=== PATIENT | female | born 1945 | race Caucasian/White ===

== ENCOUNTER → 2016-08-09 | Outpatient (CLI) | payer MEDICARE, BC ==
[~2016-08-09] MED LIST: ASPRIN; CALCIUM CITRAT200 MG PO; FEMARA2.5 MG PO; MULTIPLE VITAMI1 CAP PO; NIACIN100 M1 PO
[2016-08-09 07:27] LABS: HEMATOCRIT 37.9 % (37.0-47.0); HEMOGLOBIN 12.8 g/dl (12.5-16.0); MEAN CELL VOLUME 96 fl (80.0-100.0); MEAN CORPUSCULAR HEMOGLOBIN 32 pg (27.0-31.0); MEAN CORPUSCULAR HGB CONC 34 g/dl (33.0-37.0); MEAN PLATELET VOLUME 11.2 fl (7.4-10.4); PLATELET COUNT 198 K/mm3 (130-400); RED BLOOD COUNT 3.97 M/mm3 (4.10-5.30); REDCELL DISTRIBUTION WIDTH-CV 13.1 % (11.5-14.5); WHITE BLOOD COUNT 4.5 K/mm3 (4.8-10.8)
[2016-08-09 07:43] LABS: ADJUSTED CALCIUM 9.2 mg/dL (8.4-10.2); ALBUMIN 4.6 gm/dL (3.5-5.0); BILIRUBIN,TOTAL 0.8 mg/dL (0.0-1.0); CALCIUM 9.7 mg/dL (8.4-10.2); CREATININE, serum 0.66 mg/dL (0.52-1.25); POTASSIUM 4.4 mmol/L (3.4-5.0); TOTAL PROTEIN 8.1 gm/dL (6.4-8.2)
[2016-08-09 08:07] LABS: THYROID STIMULATING HORMONE 3.86 uIU/mL (0.465-4.680)
== END ==
LOC: COL.LAB 06:52
PROVIDERS: Internal Medicine
DX: I10 Essential (primary) hypertension (principal); E78.4 Other hyperlipidemia; E55.9 Vitamin D deficiency, unspecified; Z51.11 Encounter for antineoplastic chemotherapy

== ENCOUNTER → 2016-09-14 | Outpatient (CLI) | payer MEDICARE, BC | LOC: MC.RAD 07:40 | DX: Z12.31 Encounter for screening mammogram for malignant neoplasm of breast (principal); D24.2 Benign neoplasm of left breast; Z85.3 Personal history of malignant neoplasm of breast ==

== ENCOUNTER → 2017-04-25 | Outpatient (CLI) | payer MEDICARE, BC ==
[2017-04-25 09:25] LABS: CALCIUM 9.4 mg/dL (8.4-10.2); CREATININE, serum 0.7 mg/dL (0.52-1.25); POTASSIUM 4.2 mmol/L (3.4-5.0)
== END ==
LOC: COL.LAB 08:07
PROVIDERS: Internal Medicine
DX: E87.1 Hypo-osmolality and hyponatremia (principal)

== ENCOUNTER → 2017-09-09 | Outpatient (CLI) | payer MEDICARE, BC ==
[2017-09-09 08:03] LABS: HEMATOCRIT 37.9 % (37.0-47.0); HEMOGLOBIN 13.1 g/dl (12.5-16.0); MEAN CELL VOLUME 96 fl (80.0-100.0); MEAN CORPUSCULAR HEMOGLOBIN 33 pg (27.0-31.0); MEAN CORPUSCULAR HGB CONC 35 g/dl (33.0-37.0); MEAN PLATELET VOLUME 9.5 fl (7.4-10.4); PLATELET COUNT 277 K/mm3 (130-400); RED BLOOD COUNT 3.97 M/mm3 (4.10-5.30); REDCELL DISTRIBUTION WIDTH-CV 12.6 % (11.5-14.5)
[2017-09-09 08:17] LABS: ALBUMIN 4.3 gm/dL (3.5-5.0); BILIRUBIN,TOTAL 0.6 mg/dL (0.0-1.0); CALCIUM 9.2 mg/dL (8.4-10.2); CHOLESTEROL RISK RATIO 2.4; CREATININE, serum 0.63 mg/dL (0.52-1.25); POTASSIUM 4.2 mmol/L (3.4-5.0); TOTAL PROTEIN 8.3 gm/dL (6.4-8.2)
[2017-09-09 08:46] LABS: THYROID STIMULATING HORMONE 2.68 uIU/mL (0.465-4.680)
== END ==
LOC: COL.LAB 07:30
PROVIDERS: Internal Medicine
DX: E78.2 Mixed hyperlipidemia (principal); I10 Essential (primary) hypertension

== ENCOUNTER → 2017-10-06 | Outpatient (CLI) | payer MEDICARE, BC | LOC: MC.RAD 07:53 | DX: Z12.31 Encounter for screening mammogram for malignant neoplasm of breast (principal); N64.89 Other specified disorders of breast; I10 Essential (primary) hypertension; E78.2 Mixed hyperlipidemia; Z98.890 Other specified postprocedural states; Z85.3 Personal history of malignant neoplasm of breast ==

== ENCOUNTER → 2017-11-07 | Outpatient (CLI) | payer MEDICARE, BC ==
[2017-11-07 09:03] LABS: ALBUMIN 4.3 gm/dL (3.5-5.0); BILIRUBIN,TOTAL 0.6 mg/dL (0.0-1.0); CALCIUM 9.5 mg/dL (8.4-10.2); CREATININE, serum 0.64 mg/dL (0.52-1.25); POTASSIUM 4.3 mmol/L (3.4-5.0); TOTAL PROTEIN 8.3 gm/dL (6.4-8.2)
== END ==
LOC: COL.LAB 08:25
PROVIDERS: Internal Medicine
DX: I10 Essential (primary) hypertension (principal)

== ENCOUNTER → 2017-11-18 | Outpatient (CLI) | payer MEDICARE, BC ==
[2017-11-18 09:42] LABS: CALCIUM 9.4 mg/dL (8.4-10.2); CREATININE, serum 0.62 mg/dL (0.52-1.25); POTASSIUM 4.1 mmol/L (3.4-5.0); TOTAL PROTEIN 8.3 gm/dL (6.4-8.2)
== END ==
LOC: COL.LAB 08:58
PROVIDERS: Internal Medicine
DX: R79.9 Abnormal finding of blood chemistry, unspecified (principal)

== ENCOUNTER → 2017-11-28 | Outpatient (CLI) | payer MEDICARE, BC ==
[2017-11-28 15:01] LABS: CALCIUM 9.2 mg/dL (8.4-10.2); CREATININE, serum 0.67 mg/dL (0.52-1.25); POTASSIUM 3.9 mmol/L (3.4-5.0)
== END ==
LOC: COL.LAB 14:34
PROVIDERS: Internal Medicine
DX: R79.9 Abnormal finding of blood chemistry, unspecified (principal)

== ENCOUNTER → 2018-01-27 | Outpatient (CLI) | payer MEDICARE, BC ==
[2018-01-27 08:32] LABS: POTASSIUM 4.6 mmol/L (3.4-5.0)
== END ==
LOC: COL.LAB 07:47
PROVIDERS: Internal Medicine
DX: E78.2 Mixed hyperlipidemia (principal); R79.9 Abnormal finding of blood chemistry, unspecified

== ENCOUNTER → 2019-03-21 | Outpatient (CLI) | payer MEDICARE, BC ==
[2019-03-21 15:11] LABS: CALCIUM 9.4 mg/dL (8.4-10.2); CREATININE, serum 0.62 (0.52-1.25); POTASSIUM 3.7 mmol/L (3.4-5.0)
== END ==
LOC: COL.LAB 14:20
PROVIDERS: Internal Medicine
DX: I10 Essential (primary) hypertension (principal); E53.8 Deficiency of other specified B group vitamins; E55.9 Vitamin D deficiency, unspecified

== ENCOUNTER 2021-02-25 14:43 | Outpatient (CLI) | payer MEDICARE, BC ==
[~2021-02-25] VITALS: Ht 157.5 cm; Wt 78.4 kg
[2021-02-25 15:07] VITALS: BP 122/71; PULSE 86; TEMP 98
[2021-02-25] MEDS ORDERED: VITAMIN D 50,1.25 MG PO (17:17)
[2021-02-25] MEDS ORDERED: NORVASC 10MG10 MG PO (17:19)
[2021-02-25] MEDS ORDERED: NAMENDA 10MG TA10 MG PO (17:19)
[2021-02-25] MEDS ORDERED: PRINIVIL40 MG PO (17:20)
== END 2021-02-25 15:45 | disposition home or self-care (01) ==
LOC: EUO 14:43
DX: Z79.899 Other long term (current) drug therapy (principal)
CPT/HCPCS: J0897

== ENCOUNTER 2023-12-01 07:27 | Inpatient (IN) | payer MEDICARE, BC ==
[~2023-12-01] VITALS: Ht 162.6 cm; Wt 70.8 kg
[~2023-12-01 07:27] MED LIST changes: +NAMENDA 10MG TA10 MG PO; +NORVASC 10MG10 MG PO; +PRINIVIL20 MG PO; +VITAMIN D 50,1.25 MG PO
[2023-12-01] MEDS ORDERED: cefTRIAXone 1 G in Water For Injection,Sterile 10 ML IV ONE (08:00)
[2023-12-01] MEDS ORDERED: metroNIDAZOLE 100 ML IV ONE (08:00)
[2023-12-01] MEDS ORDERED: NS 1,000 ML IV ONE ×2 (08:00→13:00)
[2023-12-01 08:17] LABS: BASO % 0.2 % (0.0-2.0); GRAN # 7.3 K/mm3 (1.4-6.5); GRAN % 87.9 % (42.2-75.2); HEMOGLOBIN 11.1 g/dl (12.5-16.0); LYMPH # 0.3 K/mm3 (1.2-3.4); LYMPH % 3.4 % (20.0-51.0); MEAN CELL VOLUME 99 fl (80.0-100.0); MEAN CORPUSCULAR HEMOGLOBIN 31 pg (27-31); MEAN CORPUSCULAR HGB CONC 32 g/dl (33.0-37.0); MEAN PLATELET VOLUME 11.4 fl (7.4-10.4); MONO # 0.7 K/mm3 (0.1-0.6); MONO % 8.1 % (1.7-9.3); PLATELET COUNT 195 K/mm3 (130-400); RED BLOOD COUNT 3.54 M/mm3 (4.10-5.30); REDCELL DISTRIBUTION WIDTH-CV 13.2 % (11.5-14.5)
[2023-12-01 08:27] LABS: HEMATOCRIT 34.9 % (37.0-47.0)
[2023-12-01 08:34] LABS: ALBUMIN 3.4 g/dL (3.4-4.8); BILIRUBIN,TOTAL 0.6 mg/dL (0.2-1.2); CALCIUM 9.3 mg/dL (8.4-10.2); CREATININE, serum 1.2 mg/dL (0.57-1.11); POTASSIUM 3.3 mEq/L (3.5-4.5); TOTAL PROTEIN 6.8 g/dl (6.2-8.1)
[2023-12-01] MEDS ORDERED: LIPITOR 40MG TA40 MG PO (11:48)
[2023-12-01] MEDS ORDERED: ARICEPT10 MG PO (11:48)
--- NOTE | 2023-12-01 12:30 | NUR ---
Patient arrives to ICU. RN reports hypotension & that patient will not leave mask on resulting in SpO2 in mid 80s. Patient with history of dementia & not able to follow commands. in waiting room. Patient current condition discussed with patient's , Benjamin. Dr. Haddad present & provides clinical problems, treatment & concerns. Discussed potential decline in condition if patient continues to remove oxygen mask & not allow staff to put it back on. Patient is currently a full code. Code status discussed. Options for aggressive vs. comfort care discussed. Benjamin stated that the patient has dementia (end stage) & that some days she does not recognize him. realistic that aggressive treatment is not going to fix her underlying dementia. Benjamin supportive of DNR/DNI. Discussed that if the patient continues to pull oxygen mask off that at some point we may need to discuss when not to put it back on. Benjamin very aware of patient's pulling at lines & tubes. He did state not to fight the patient to keep the mask on, but that he would like hospital staff to try to put the mask back on her. Dr. Haddad order the code status change & Levophed for vasopressor support. Dr. Haddad left waiting room. Talked with Benjamin about care for his at home. He is her primary caregiver for all cares. He stated that her PCP is Dr. Pepe & that they have discussed the patient's changes with dementia for some time. Discharge home did come up in conversation & advised that we needed to see if the patient makes progress in the next 24 hours. Couple lives by themselves in [place]. The patient does not have any living children of family. Benjamin has two adult children from his first marriage; a son in [place] & a daughter in . He has good support & help with care for his from his neighbors & friends. Asked Benjamin about the events of last 24 hours. He states that Radha fell "about dark" last night. He could not get her up initially, so he called EMS for assistance. EMS was able to check on patient & helped her get into bed. She slept all night. When she got up this morning she was able to ambulate to the couch, but could not get up independently or with Benjamin's assistance; he called EMS again whichh resulted in a trip to the ED & subsequent admission. Contact information for the ICU provided to Benjamin. His phone number placed on chart. He plans to leave for a while to eat & rest a little.
[2023-12-01 12:32] LABS: ARTERIAL BLOOD GAS BASE EXCESS -6.6 (-2-2); ARTERIAL BLOOD GAS HCO3 18.7 meq/L (22-26); ARTERIAL BLOOD GAS PCO2 36.8 mmHg (35-45); ARTERIAL BLOOD GAS PO2 27.5 mmHg (80-100); ARTERIAL BLOOD GAS pH 7.32 (7.35-7.45)
--- NOTE | 2023-12-01 12:34 | NUR ---
WHILE GETTING ABG ON PATIENT. PATIENT MOVED AND YELLED AT RT. RT THINKS THAT THE ABGS ARE MIXED VENOUS FOR THE ABG RESULTED AT 1226. RT BARELY GOT ENOUGH BLOOD FOR ABG SAMPLE
[2023-12-01] MEDS ORDERED: NS 500 ML IV ONE ×2 (13:00→16:45)
--- NOTE | 2023-12-01 15:04 | NUR ---
Entered the room in response to a low SPO2 - 82%. Patient was on room air as she did not want to wear her oxygen. She is confused and asking if she can go home and go to sleep. Multiple attempts to help her put on her NRB mask. Shades drawn so the sun wasn't so bright in the room and brought in a warm blanket to try to calm her. She did allow me to put her NRB mask back on. As I left the room, her SPO2 was up to 94% on flush NRB.
--- NOTE | 2023-12-01 15:30 | NUR ---
Patient's returns. Updated on status. Stark placement, medications & oxygen needs. Discussed that patient will not leave O2 mask on. He stated to try to put it on before she goes to sleep. Benjamin stated that he would like nursing staff to make an effort to put the mask on, but realizes that she may continue to take it off. Express understanding that the patient may decline without the oxygen. Benjamin stayed for about 10 minutes & stated that he just wanted to check on her. Questions answered.
[2023-12-01] MEDS ORDERED: *Potassium Replacement Protocol MC SCH (15:45)
[2023-12-01 16:13] LABS: PH 6.5 (5.0-8.5); URINE APPEARANCE CLEAR (CLEAR/HAZY); URINE BLOOD TRACE (NEGATIVE); URINE COLOR YELLOW (YELLOW); URINE GLUCOSE TRACE (NEGATIVE); URINE KETONE NEGATIVE (NEGATIVE); URINE NITRATE NEGATIVE (NEGATIVE); URINE PROTEIN(semi-quant) 1+ (NEGATIVE); URINE UROBILINOGEN 0.2 E.U/dL (0.2-1.0)
[2023-12-01 16:20] LABS: MUCOUS PRESENT (NOT PRESENT); SQUAMOUS EPITHELIAL 0-2 /hpf (0-10); URINE BACTERIA NONE SEEN /hpf (NONE SEEN)
[2023-12-01] MEDS ORDERED: OLANZapine 2.5 MG,Water For Injection,Sterile 0.5 ML IM ONE ×2 (16:45→17:45)
[2023-12-01] MEDS ORDERED: LORazepam 0.5 MG TAB PO PRN (17:45)
[2023-12-01 18:00] VITALS: BP 94/73; PULSE 93; TEMP 98
--- NOTE | 2023-12-01 19:10 | NUR ---
Received report from JESSICA Russell.
[2023-12-01 20:00] VITALS: BP 109/70; PULSE 93; TEMP 99.1
--- NOTE | 2023-12-01 20:00 | NUR ---
Patient resting quietly in bed. Remains on AirVo, tolerating well. Bilateral hand mitts remain in place at this time. Vitals within normal limits. Patient does not appear in obvious pain or discomfort. She opens her eyes spontaneously but does not follow verbal commands and speech is confused/inappropriate. Patient has audible, weak and wet cough. She seems unable to adequately clear secretions without staff assistance or persistent prompting. She is very uncooperative with attempts to suction via yankauer.
--- NOTE | 2023-12-01 20:00 | NUR ---
Patient has had confusion and has refused her oxygen. In the ER she was refusing to wear any oxygen, methods differed from 15 liters oxymask, 15 liters rebreather, then airvo to 60 liters/ 66% to maintain when oxygen on. Mittens were applied per request to ensure she is getting her oxygen. At this time, mittens restraint order is in, and have been applied without complications. Airvo has been in nares for approximately 1.5 hours with saturations at 90-92%. X2 Zyprexa doses given for agitation. PRN ativan is available. Stark inserted with 3 nurses, 10ml in balloon, secured device on left thigh. No fevers.
[2023-12-01] MEDS ORDERED: Potassium Chloride 100 ML IV SCH (21:00)
[2023-12-02] VITALS: BP 136/59; PULSE 90; TEMP 99
[2023-12-02 04:00] VITALS: BP 122/64; PULSE 89; TEMP 98.5
[2023-12-02 05:45] LABS: HEMOGLOBIN 10.4 g/dl (12.5-16.0); MEAN CELL VOLUME 97 fl (80.0-100.0); MEAN CORPUSCULAR HEMOGLOBIN 32 pg (27-31); MEAN CORPUSCULAR HGB CONC 33 g/dl (33.0-37.0); MEAN PLATELET VOLUME 11.1 fl (7.4-10.4); PLATELET COUNT 159 K/mm3 (130-400); RED BLOOD COUNT 3.22 M/mm3 (4.10-5.30); REDCELL DISTRIBUTION WIDTH-CV 13.3 % (11.5-14.5)
[2023-12-02 05:52] LABS: HEMATOCRIT 31.2 % (37.0-47.0)
[2023-12-02 06:07] LABS: ALBUMIN 2.5 g/dL (3.4-4.8); CALCIUM 8.8 mg/dL (8.4-10.2); CREATININE, serum 0.89 mg/dL (0.57-1.11); MAGNESIUM 1.9 mg/dL (1.6-2.6); PHOSPHOROUS 2.2 mg/dL (2.3-4.7); POTASSIUM 4.2 mEq/L (3.5-4.5)
[2023-12-02 06:45] LABS: BAND 71 % (0-10); LYMPHOCYTE 12 % (20.0-51.0); METAMYELOCYTE 2 % (0-0); NEUTROPHILS 11 % (42.0-75.2)
[2023-12-02 08:00] VITALS: BP 119/63; PULSE 98; TEMP 99.3
--- NOTE | 2023-12-02 08:34 | NUR ---
Patient is resting with eyes closed, bilateral mitten restraints on, AIRVO on 60 liters, 56% fiO2. IV in right forearm flushes without complications, quiroz draining appropriately yellow urine with small amounts of sediment. PERRLA with 2 mm, sluggish to react. No edema, pulses intact, bilateral coarse lung sounds throughout. Interactions with patient results in patient stating "you're hurting me, help me, leave me alone," not appropriate to questions/ interactions. Will follow up with about next steps in care direction.
[2023-12-02] MEDS ORDERED: Scopolamine 1 MG Delivered 3-Day PATCH TD SCH (09:15)
[2023-12-02] MEDS ORDERED: OLANZapine 2.5 MG,Water For Injection,Sterile 0.5 ML IM PRN (09:15)
[2023-12-02] MEDS ORDERED: LORazepam 2 MG/ML 1 ML VIAL IV PRN (09:15)
[2023-12-02] MEDS ORDERED: NS IV ONE (09:30)
[2023-12-02] MEDS ORDERED: LR 1,000 ML IV SCH (09:30)
[2023-12-02] MEDS ORDERED: POTASSIUM PHOSHATE IV ONE (09:30)
[2023-12-02 12:00] VITALS: BP 118/75; PULSE 92; TEMP 99.1
--- NOTE | 2023-12-02 12:01 | NUR ---
timber mill worker spoke with patient's nurse and was notified patient is "end stage" dementia and it would be best to contact patient's for intake information. SW reviewed patient's nursing notes and patient's is potentially open to comfort care but wants to see if patient improves in the next day. SW contacted patient's , Benjamin, P# [phone], whom confirmed patient's PCP is Dr. Pepe, Pharmacy is [facility]. INsurance is Medicare A and B and BCBS. DME is cane and is not normally on oxygen at home. Benjamin reports that he provides assistance with all ADLS. Benjamin also explained that he transports her to and from appointments when he is able to get in and out of the vehicle. SW discussed discharge plan. Benjamin explained he still wants to see how patient improves but admitted at this point he would not be able to appropriately care for patient in the home. SW discussed LTC and if patient were to go on comfort care measures there is the hospice house or LTC with hospice. SW explained they could discuss this more once he comes to a decision about comfort care versus continuing medical care. Benjamin expressed understanding. SW notified Lisa, ICU supervisor salvage, of the conversation above. Lisa explained if Benjamin returns to the hospital and they have a conversation about her plan for care, she would notify the social worker masters. Discharge plan:TBD
[2023-12-02 16:00] VITALS: BP 136/69; PULSE 98; TEMP 99.3
[2023-12-02 20:00] VITALS: BP 111/71; PULSE 92; TEMP 98.9
[2023-12-03] VITALS (7 sets, daily range): BP systolic 112–151; BP diastolic 57–79; PULSE 76–97; TEMP 97.5–99.5
--- NOTE | 2023-12-03 02:58 | NUR ---
PATIENT TRANSFERED TO MEDICAL [facility] TINO LOPEZ RECIEVES PATIENT AND NURSES REPROT
--- NOTE | 2023-12-03 05:25 | NUR ---
PT ARRIVED TO THE MEDICAL FLOOR AROUND 0245HRS TO ROOM 356. PT A&O TO SELF; VSS; O2 45L 56% VIA AIRVO. PT WILL YELL OUT WHEN YOU TOUCH HER, BUT OTHERWISE DOES NOT APPEAR TO BE IN ANY PAIN OR DISCOMFORT. BILAT MITTEN RESTRAINTS ON, NO RESTRICTED CIRCULATION. ASSESSMENT COMPLETE. UNABLE TO COMPLETE MED REC, PT NOT COGNITIVELY AWARE ENOUGH TO ANSWER QUESTIONS. PT CHECKED ON OFTEN TO ENSURE HER NEEDS ARE MET. FALL PRECAUTIONS IN PLACE. BED ALARM ON. CALL LIGHT WITHIN REACH.
[2023-12-03 06:39] LABS: MEAN CELL VOLUME 98 fl (80.0-100.0); MEAN CORPUSCULAR HGB CONC 33 g/dl (33.0-37.0); MEAN PLATELET VOLUME 11.8 fl (7.4-10.4); PLATELET COUNT 131 K/mm3 (130-400); RED BLOOD COUNT 2.93 M/mm3 (4.10-5.30); REDCELL DISTRIBUTION WIDTH-CV 13.2 % (11.5-14.5)
[2023-12-03 06:45] LABS: HEMATOCRIT 28.6 % (37.0-47.0); HEMOGLOBIN 9.5 g/dl (12.5-16.0); MEAN CORPUSCULAR HEMOGLOBIN 32 pg (27-31)
[2023-12-03 07:14] LABS: CALCIUM 8.9 mg/dL (8.4-10.2); CREATININE, serum 0.84 mg/dL (0.57-1.11); PHOSPHOROUS 2.1 mg/dL (2.3-4.7); POTASSIUM 3.5 mEq/L (3.5-4.5)
[2023-12-03 08:21] LABS: BAND 55 % (0-10); LYMPHOCYTE 11 % (20.0-51.0); NEUTROPHILS 30 % (42.0-75.2); PLATELET ESTIMATE NORMAL (NORMAL)
[2023-12-03] MEDS ORDERED: Potassium Chloride 100 ML IV SCH (08:45)
--- NOTE | 2023-12-03 08:47 | NUR ---
RN provided copy of patient's DPOA document to SW provided by . Copy placed on chart. Discharge plan: TBD
--- NOTE | 2023-12-03 09:00 | NUR ---
PT LAYING IN BED UPON ENTERING. ASSESSMENT DONE, MEDS GIVEN PER ORDER. UNABLE TO ORIENT PT. PT FALLING ASLEEP DURING ASSESSMENT, RISE AND FALL OF CHEST NOTED AND PT HAS NO SIGNS OF DISTRESS. INT TO RIGHT FOREARM PATENT. PICC TO LEFT UPPER ARM IN PLACE, BOTH PORTS FLUSH WITH BLOOD RETURN. LR RUNNING AT 75 MLS/HR PER ORDER. PT NPO. MIRANDA PATENT AND DRAINING WITHOUT DIFFICULTY. BILATERAL MITTENS ON PT AT THIS TIME. CMS INTACT AND THIS NURSE ABLE TO PUT 2 FINGERS IN GEOVANI OPENING. PT HAS NO OBVIOUS NEEDS AT THIS TIME. BED IN LOWEST POSITION, CALL LIGHT IN REACH, BED ALARM ON
--- NOTE | 2023-12-03 09:05 | NUR ---
THIS NURSE CALLED DR BELL AND NOTIFIED HIM THAT PTS ORDERS FOR MITTEN RESTRAINTS AT 0900. DR BELL TOLD THIS NURSE "YOU CAN RENEW THAT ORDER".
[2023-12-03] MEDS ORDERED: VITAMIND3 5000 PO (10:07)
[2023-12-03] MEDS ORDERED: ZYRTEC 10MG10 MG PO (10:07)
--- NOTE | 2023-12-03 13:24 | NUR ---
[facility]. stated that his daughter visited yesterday and they discussed all options for patient care. SW discussed discharge option of longterm placement with hospice care. Medicare.gov list of local nursing homes provided. asked that referral be sent to [facility] in hospice house. Referral sent via secure email. Dr. Haddad, atteding, notified of 's decision and stated patient can be discharged once discharge plan is arranged. WILL spoke with Cassie at [facility] ([phone]) to discuss referral. Discharge plan: Hospice House
[2023-12-03 13:58] LABS: CLOSTRIDIUM DIFF A/B NEG
--- NOTE | 2023-12-03 15:03 | NUR ---
Data: Spiritual Care visit attempted. Patient was sleeping. Assessment: None at this time. Patient sleeping. Plan of Care: Chaplains will remain available as needed/requested while Patient is admitted to this hospital.
--- NOTE | 2023-12-03 16:06 | NUR ---
WILL received call from Ernst with [facility]. She states that they cannot accommodate patient's high flow oxygen. WILL spoke with Dr. Haddad who stated he will call to discuss comfort care. WILL called Ernst again to communicate this plan of putting patient on comfort care if agrees and will call her in the morning. Ernst states they are waiting to determine their paramedical aide will follow patient. Discharge plan: hospice
[2023-12-03] MEDS ORDERED: Morphine 4 MG/ML VIAL IV PRN (18:30)
[2023-12-03] MEDS ORDERED: Haloperidol Lactate 5 MG/ML VIAL IV PRN (18:30)
[2023-12-03] MEDS ORDERED: Scopolamine 1 MG Delivered 3-Day PATCH TD SCH (18:30)
[2023-12-03] MEDS ORDERED: LORazepam 2 MG/ML 1 ML VIAL IV PRN (18:30)
--- NOTE | 2023-12-03 18:53 | NUR ---
DR BELL CALLED AND NOTIFIED THIS NURSE THAT AIRVO CAN BE DISCONTINUED AND PLACED ON 8L NASAL CANNULA. NIGHT RN NOTIFIED ON THIS UPDATE
--- NOTE | 2023-12-04 07:00 | NUR ---
PT COMFORT CARE, MITTENS REMOVED. PICC TO RIGHT UPPER ARM IN PLACE, BOTH PORTS FLUSH WITH BLOOD RETURN. INT TO RIGHT FOREARM PATENT. UNABLE TO ORIENT PT AND PT HAS NO OBVIOUS SIGNS OF PAIN. MIRANDA PATENT AND DRAINING WITHOUT ISSUES. PT AGITATED WHEN TOUCHED. PT ON 8L NASAL CANNULA. PT HAS NO OBVIOUS NEEDS. BED IN LOWEST POSITION, CALL LIGHT IN REACH, BED ALARM ON
[2023-12-04] MEDS ORDERED: DULCOLAX S10 MG/SUPP RC (09:19)
[2023-12-04] MEDS ORDERED: SYSTANE 0.4%-0.1 SOL OU (09:19)
[2023-12-04] MEDS ORDERED: TRANSDERM-0.5 MG/21 TD (09:19)
[2023-12-04] MEDS ORDERED: ATIVAN 1MG T1 MG/TAB PO (09:22)
[2023-12-04] MEDS ORDERED: ROXANOL 20MG20 MG/ML SL (09:22)
--- NOTE | 2023-12-04 09:23 | NUR ---
WILL spoke with Ernst from [facility]. They are agreeable to admit patient today and ask for transport to be set around 1000. WILL spoke with who is agreeable to transfer to [facility]. Dr. Haddad notified of acceptance. [facility] called and transport set for 1000. gave verbal consent via phone for transport. EMS forms completed and signed by attending. Orders faxed to [facility]. Discharge plan: [facility]
--- NOTE | 2023-12-04 09:30 | NUR ---
IV TO RIGHT FOREARM REMOVED AND PICC TO LEFT UPPER ARM REMOVED. PICC CATHETER INTACT, GAUZE AND TEGADERM APPLIED AND PRESSURE HELD FOR 15 MINS. PT CONFUSED AND AGITATED DURIGN CARE. PT UNABLE TO ORIENT AT THIS TIME. BED IN LOWEST POSITION, CALL LIGHT IN REACH. BED ALARM ON.
--- NOTE | 2023-12-04 10:30 | NUR ---
EMS HERE FOR PT AND GIVEN PACKET WITH DNR ORDERS AND HISTORY. MIRANDA IN PLACE AND PT HAS NO OBVIOUS NEEDS AT THIS TIME.
--- NOTE | 2023-12-04 11:10 | NUR ---
REPORT CALLED TO [facility] AND ALL QUESTIONS ANSWERED.
== END 2023-12-04 11:10 | disposition hospice, inpatient (51) | DRG 871 ==
LOC: COL.ER 07:27 → ICU 09:48 → MEDICAL 12:20
PROVIDERS: Personal Emergency Response Attendant; ADMIT Internal Medicine
PROC: 02HV33Z Insertion of Infusion Device into Superior Vena Cava, Percutaneous Approach (ICD-10-PCS; principal; 2023-12-01)
DX: A41.9 Sepsis, unspecified organism (principal); G93.41 Metabolic encephalopathy; R65.21 Severe sepsis with septic shock; J69.0 Pneumonitis due to inhalation of food and vomit; J96.01 Acute respiratory failure with hypoxia; I10 Essential (primary) hypertension; Z66 Do not resuscitate; F03.90 Unspecified dementia, unspecified severity, without behavioral disturbance, psychotic disturbance, mood disturbance, and anxiety
CPT/HCPCS: C1751; J0696; J1836; J2060; J2359; J2543; J3480; J7030; J7040; J7050; J7120